=== PATIENT | female | born 2005 | race Caucasian/White ===

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

== ENCOUNTER 2025-04-10 16:09 | Emergency (ER) | payer OTHER ==
[2025-04-10 17:17] LABS: Sqamous Epithelial <5 /HPF (None Seen); Urine Bacteria <20 /HPF (<20); Urine Bilirubin NEGATIVE (Negative); Urine Blood 3+ (OVER) (Negative); Urine Clarity Extremely Turbid (Clear); Urine Color Light-Yellow (Yellow); Urine Crystals Unidentified Few /HPF (None Seen); Urine Culture Reflex Order REFLEXED; Urine Glucose NEGATIVE (Negative); Urine Ketones NEGATIVE (Negative); Urine Microscopic Reflex YN ORDER UMIC; Urine Mucus Slight /HPF (None Seen); Urine Nitrite NEGATIVE (Negative); Urine Protein 1+ (Negative); Urine RBC >50 /HPF (None Seen); Urine Urobilinogen Normal (Normal); Urine WBC >50 /HPF (<5); Urine WBC Clump Few /HPF (None Seen)
[2025-04-10] MEDS ORDERED: PHENAZOPYRIDINE 100MG TAB PO ONE (17:25)
--- NOTE | 2025-04-10 17:35 | ER ---
Nurse's Notes [facility] Name: Chelita Nixon Age: 19 yrs Sex: Female : 2005 Arrival Date: 04/10/2025 Time: 16:09 Bed 10 Private MD: Diagnosis: UTI/ Urinary tract infection, site not specified Presentation: 04/10 16:27 Chief complaint: Urinary frequency, pain with urination, and blood in urine x 2 days. hb Coronavirus screen: At this time, the client does not indicate any symptoms associated with coronavirus-19. Ebola Screen: No symptoms or risks identified at this time. Initial Sepsis Screen: Does the patient meet any 2 criteria? No. Patient's initial sepsis screen is negative. Does the patient have a suspected source of infection? No. Patient's initial sepsis screen is negative. Risk Assessment: Do you want to hurt yourself or someone else? Patient reports no desire to harm self or others. Onset of symptoms was April 09, 2025. 16:27 Method Of Arrival: Ambulatory hb 16:27 Acuity: PRICE 4 hb Historical: - Allergies: 16:29 No Known Allergies; hb - Home Meds: 16:29 None [Active]; hb - PMHx: 16:29 None; hb - PSHx: 16:29 Appendectomy; hb - Immunization history:: Adult Immunizations up to date. Screenin:59 [facility] ED Fall Risk Assessment (Adult) History of falling in the last 3 months, jb4 including since admission No falls in past 3 months (0 pts) Confusion or Disorientation No (0 pts) Intoxicated or Sedated No (0 pts) Impaired Gait No (0 pts) Mobility Assist Device Used No (0 pt) Altered Elimination No (0 pt) Score/Fall Risk Level 0 - 2 = Low Risk Oriented to surroundings, Maintained a safe environment. Abuse screen: Denies threats or abuse. Nutritional screening: No deficits noted. Tuberculosis screening: No symptoms or risk factors identified. Assessment: 17:59 General: Appears in no apparent distress. comfortable, Behavior is calm, cooperative, jb4 appropriate for age. Pain: Complains of pain in pelvis Pain does not radiate. Pain currently is 5 out of 10 on a pain scale. Neuro: Level of Consciousness is awake, alert, obeys commands, Oriented to person, place, time, situation. Cardiovascular: Patient's skin is warm and dry. Respiratory: Airway is patent Respiratory effort is even, unlabored, Respiratory pattern is regular, symmetrical. Derm: Skin is intact, Skin is normal. Musculoskeletal: Circulation, motion, and sensation intact. Range of motion: intact in all extremities. Vital Signs: 16:27 BP 150 / 93; Pulse 105; Resp 16; Temp 98.4(O); Pulse Ox 100% on R/A; Pain 2/10; hb 17:59 BP 135 / 90; Pulse 84; Resp 16; Pulse Ox 100% on R/A; jb4 16:27 Pain Scale: Adult hb ED Course: 16:11 Patient arrived in ED. im 16:13 Ramone Crenshaw DO is Attending Physician. ms3 16:29 Triage completed. hb 17:35 Lalo Vivas DO is Referral Physician. ms3 17:59 Patient has correct armband on for positive identification. Bed in low position. Call jb4 light in reach. Side rails up X 1. Provided Education on: discharge instructions.. 17:59 No provider procedures requiring assistance completed. Patient did not have IV access jb4 during this emergency room visit. Administered Medications: 17:34 Drug: Phenazopyridine PO 200 mg PO once Route: PO; jb4 18:01 Follow up: Response: No adverse reaction; Marked relief of symptoms jb4 Medication: 17:59 VIS not applicable for this client. jb4 Outcome: 17:35 Discharge ordered by . ms3 17:59 Discharged to home ambulatory, with friend, jb4 17:59 Condition: stable 17:59 Discharge instructions given to patient, Instructed on discharge instructions, follow up and referral plans. medication usage, Demonstrated understanding of instructions, follow-up care, medications, Prescriptions given X 3, 18:02 Patient left the ED. jb4 Addendum: 04/12/2025 19:29 Addendum: Culture Results: Positive urine culture. No further action required. Bacteria i w sensitive to prescribed antibiotic. Signatures: Angelita London RN RN Sujey Portillo RN RN Curt Yanes RN RN jb4 Ramone Crenshaw DO DO ms3 Amarilis Dasilva im Corrections: (The following items were deleted from the chart) 04/10 16:29 16:29 Allergies: Aspirin; hb hb
--- NOTE | 2025-04-10 17:35 | EDPHYS ---
Physician Documentation [facility] Name: Chelita Nixon Age: 19 yrs Sex: Female : 2005 Arrival Date: 04/10/2025 Time: 16:09 Bed 10 Private MD: ED Physician Ramone Crenshaw HPI: 04/10 16:50 This 19 yrs old Female presents to ER via Ambulatory with complaints of Urinary Problem.ms3 16:50 19-year-old female with no past medical history presents to the emergency department ms3 for hematuria, dysuria, urinary frequency that began yesterday. Patient denies any alleviating factors. Patient denies any inciting factors. Patient states she is taken AZO without relief. Historical: - Allergies: 16:29 No Known Allergies; hb - Home Meds: 16:29 None [Active]; hb - PMHx: 16:29 None; hb - PSHx: 16:29 Appendectomy; hb - Immunization history:: Adult Immunizations up to date. ROS: 16:50 Constitutional: Negative for fever, and chills. Cardiovascular: Negative for chest ms3 pain, and palpitations. Respiratory: Negative for shortness of breath, cough, wheezing, and pleuritic chest pain, Abdomen/GI: Negative for abdominal pain, nausea, vomiting, diarrhea, and constipation, 16:50 : Positive for urinary symptoms, urinary frequency, hematuria, burning with urination, Exam: 16:50 Constitutional: This is a well developed, well nourished patient who is awake, alert, ms3 and in no acute distress. Cardiovascular: Regular rate and rhythm with a normal S1 and S2. No gallops, murmurs, or rubs. Normal PMI, no JVD. No pulse deficits. Respiratory: Lungs have equal breath sounds bilaterally, clear to auscultation and percussion. No rales, rhonchi or wheezes noted. No increased work of breathing, no retractions or nasal flaring. Abdomen/GI: Soft, non-tender, with normal bowel sounds. No distension or tympany. No guarding or rebound. No evidence of tenderness throughout. Back: No spinal tenderness. No costovertebral tenderness. Full range of motion. Skin: Warm, dry with normal turgor. Normal color with no rashes, no lesions, and no evidence of cellulitis. MS/ Extremity: Pulses equal, no cyanosis. Neurovascular intact. Full, normal range of motion. Vital Signs: 16:27 BP 150 / 93; Pulse 105; Resp 16; Temp 98.4(O); Pulse Ox 100% on R/A; Pain 2/10; hb 17:59 BP 135 / 90; Pulse 84; Resp 16; Pulse Ox 100% on R/A; jb4 16:27 Pain Scale: Adult hb MDM: 16:29 Medical Screening Exam initiated ms3 16:50 Differential diagnosis: nonspecific abdominal pain, urinary tract infection. ms3 18:21 Data reviewed: vital signs, nurses notes, lab test result(s), and as a result, I will ms3 discharge patient. I considered the following discharge prescriptions or medication management in the emergency department Medications were administered in the Emergency Department. See MAR. Counseling: I had a detailed discussion with the patient and/or guardian regarding the historical points, exam findings, and any diagnostic results supporting the discharge/admit diagnosis, lab results, the need for outpatient follow up, to return to the emergency department if symptoms worsen or persist or if there are any questions or concerns that arise at home. Special discussion: I discussed with the patient/guardian in detail that at this point there is no indication for admission to the hospital. It is understood, however, that if the symptoms persist or worsen the patient needs to return immediately for re-evaluation. ED course: Discussed urinalysis results with patient. Patient to follow-up with primary care physician in 2 to 3 days. All questions were answered. Return precautions discussed include fevers, vomiting, worsening symptoms, or any other concerns.. 04/10 16:21 Order name: UA Rfx Adolfo Cult if indicated; Complete Time: 17:27 ms3 04/10 17:20 Order name: Urine Culture EDMS Administered Medications: 17:34 Drug: Phenazopyridine PO 200 mg PO once Route: PO; jb4 18:01 Follow up: Response: No adverse reaction; Marked relief of symptoms jb4 Disposition Summary: 04/10/25 17:35 Discharge Ordered Notes: Location: Home ms3 Condition: Stable ms3 Diagnosis - UTI/ Urinary tract infection, site not specified ms3 Followup: ms3 - With: Lalo Vivas, DO - When: 2 - 3 days - Reason: Recheck today's complaints Discharge Instructions: - Discharge Summary Sheet ms3 Forms: - Medication Reconciliation Form ms3 - Antibiotic Education ms3 - Prescription Opioid Use ms3 - Patient Portal Instructions ms3 - Leadership Thank You Letter ms3 Prescriptions: - Pyridium 200 mg Oral Tablet - take 1 tablet ORAL route every 8 hours for 3 days; 9 tablet; Refills: 0, ms3 Product Selection Permitted - Fluconazole 150 mg Oral tablet - take 1 tablet ORAL route once daily; 1 tablet; Refills: 0, Product Selection ms3 Permitted - cefpodoxime 200 mg Oral tablet - take 1 tablet ORAL route every 12 hours with food; 14 tablet; Refills: 0, ms3 Product Selection Permitted Signatures: Dispatcher [employer] EDNY Sujey Portillo RN RN Curt Farrar RN RN jb4 Ramone Crenshaw DO DO ms3 Corrections: (The following items were deleted from the chart) 16:29 16:29 Allergies: Aspirin; hb hb
[2025-04-10 18:11] VITALS: TEMP 98.4; O2SAT 100
[2025-04-10 18:13] VITALS: BP 135/90
== END 2025-04-10 18:02 | disposition home or self-care (01) ==
LOC: ER 16:09
DX: N39.0 Urinary tract infection, site not specified (principal)
CPT/HCPCS: 81001; 87086; 87088; 99283